=== PATIENT | female | born 1995 | race Caucasian/White ===

== ENCOUNTER 2018-07-13 22:37 | Emergency (ER) | payer BC ==
--- NOTE | 2018-07-13 23:15 | ER Document Report ---
ED General - General Chief Complaint: Vag Bleeding, +preg <12wks Stated Complaint: VAGINAL BLEEDING Time Seen by Provider: 07/13/18 23:06 Notes: Patient is a 23-year-old female presents with complaint of heavy vaginal bleeding and . Bleeding is been ongoing throughout the day and she has been passing large clots. She has not passed anything that appears to be a fetus. She is approximately 11 weeks . This is her second . She had some minor bleeding during her first but it eventually resolved and she want to have a healthy boy. No other completions with this . No fevers. No vomiting. No abnormal vaginal discharge. No dysuria. She says that she has just very mild cramping in her abdomen but otherwise no further pain. She thinks that her blood type is "something positive". She is followed by Rika SARMIENTO. TRAVEL OUTSIDE OF THE [place] IN LAST 30 DAYS: No - Related Data Allergies/Adverse Reactions: No Known Allergies Allergy (Unverified 02/09/16 02:20) Past Medical History - Social History Smoking Status: Never Smoker Frequency of alcohol use: None Drug Abuse: None Family History: Reviewed & Not Pertinent Review of Systems - Review of Systems Notes: My Normal Review Basic REVIEW OF SYSTEMS: CONSTITUTIONAL : Denies fever, chills, or sweats. Denies recent illness. RESPIRATORY: Denies cough, cold, or chest congestion. Denies shortness of breath, difficulty breathing, or wheezing. GASTROINTESTINAL: Denies abdominal pain. Denies nausea, vomiting, or diarrhea. GENITOURINARY: Denies difficulty urinating, painful urination, burning, frequency, or blood in urine. FEMALE GENITOURINARY: Vaginal bleeding in . MUSCULOSKELETAL: Denies neck or back pain or joint pain or swelling. NEUROLOGICAL: Denies altered mental status or loss of consciousness. ALL OTHER SYSTEMS REVIEWED AND NEGATIVE. Physical Exam - Vital signs Vitals: Temp Pulse Resp BP Pulse Ox 98.5 F 94 14 143/82 H 98 07/13/18 22:40 07/13/18 22:40 07/13/18 22:40 07/13/18 22:40 07/13/18 22:40 - Notes Notes: General Appearance: Well nourished, alert, cooperative, no acute distress, no obvious discomfort. Well-appearing. Vitals: reviewed, See vital signs table. Eyes: PERRL, EOMI, Conjuctiva clear Lungs: No wheezing, No rales, No rhonci, No accessory muscle use, good air exchange bilaterally. Heart: Normal rate, Regular rythm, No murmur, no rub Abdomen: Normal BS, soft, No rigidity, No abdominal tenderness, No guarding, no rebound, no abdominal masses, no organomegaly Extremities: good pulses in all extremities, no edema. Neuro: speech clear, oriented x 3, normal affect, responds appropriately to questions. Course - Re-evaluation Re-evalutation: 07/14/18 01:23 Reevaluation patient continues look well. She says her bleeding has slowed down significantly. She has no sniffing pain on exam. Her ultrasound shows normal IUP with good heart rate. Hemoglobin is not a concerning level. HCG level is at a level expected for gestational age. Informed patient she is to follow-up with her OB doctor on Monday for reevaluation. In the meantime will have her avoid sexual activity and heavy lifting and to rest. I encouraged her return to ER immediately if she has recurrent heavy vaginal bleeding, severe pain, or if she feels unwell. Patient agrees with plan will be discharged home. Dictation of this chart was performed using voice recognition software; therefore, there may be some unintended grammatical errors. - Vital Signs Vital signs: Temp Pulse Resp BP Pulse Ox 98.5 F 94 14 143/82 H 98 07/13/18 22:40 07/13/18 22:40 07/13/18 22:40 07/13/18 22:40 07/13/18 22:40 - Laboratory Result Diagrams: 07/13/18 23:15 Laboratory results interpreted by me: 07/13/18 07/13/18 23:15 23:15 WBC 10.6 H Beta HCG, Quant 935652.00 H Discharge - Discharge Clinical Impression: Vaginal bleeding during Condition: Good Disposition: HOME, SELF-CARE Additional Instructions: Please do not have sex or lift anything heavy until cleared by your OB. please follow up with your OB or return to the ER for reevaluation on Monday for reevaluation and recheck of your hormone level. Please return to the ER immediately if you have recurrent heavy bleeding, difficulty breathing, lightheadedness, or feel unwell.
[2018-07-13 23:27] LABS: HEMATOCRIT 38.3 % (36.0-47.0); HEMOGLOBIN 13.2 g/dL (12.0-15.5); MEAN CORPUSCULAR HEMOGLOBIN 29.2 pg (27.0-33.4); MEAN CORPUSCULAR HGB CONC 34.5 g/dL (32.0-36.0); MEAN CORPUSCULAR VOLUME 85 fl (80-97); PLATELET COUNT 246 10^3/uL (150-450); RED BLOOD COUNT 4.53 10^6/uL (3.72-5.28); RED CELL DISTRIBUTION WIDTH 13.4 % (11.5-14.0); WHITE BLOOD COUNT 10.6 10^3/uL (4.0-10.5)
--- NOTE | 2018-07-14 00:33 | RADIOLOGY REPORT (SQ) ---
EXAM DESCRIPTION: US LESS THAN 14 WEEKS COMPLETED DATE/TME: 07/13/2018 23:12 CLINICAL HISTORY: 23 years, Female, bleeding in COMPARISON: None. TECHNIQUE: Transverse and longitudinal transabdominal sonographic images in a first trimester patient LIMITATIONS: None. FINDINGS: There is a single, live intrauterine gestation with visualization of heart tones and motion throughout the exam. heart tones were obtained at 160 bpm. Current ultrasound age is 11 weeks 5 days. This is based on a mean crown-rump length of 4.96 cm. The maternal uterus measures 10.1 x 7.2 x 9.5 cm. The maternal right ovary measures 2.8 x 1.9 x 3.1 cm, the left ovary 3.7 x 2.1 x 3.2 cm. Doppler and spectral analysis with color flow was utilized. Arterial and venous flow to both ovaries. No adnexal cyst or mass. No free fluid. Cervical length is 3.2 cm. IMPRESSION: Single, live intrauterine gestation with current ultrasound age 11 weeks 5 days. Continued nonemergent follow-up recommended copyright 2010 [employer]- All Rights Reserved
[2018-07-14 03:05] VITALS: BP 130/64
== END 2018-07-14 03:00 | disposition home or self-care (01) ==
LOC: ER 22:37
DX: O20.9 Hemorrhage in early pregnancy, unspecified (principal); Z3A.11 11 weeks gestation of pregnancy
CPT/HCPCS: 36415; 76801; 84702; 85027; 86900; 86901; 93976; 99284

== ENCOUNTER 2019-01-09 19:49 | Inpatient (IN) | payer BC ==
[2019-01-09] MEDS ORDERED: OXYTOCIN/NORMAL SALINE 20 UNIT/1,000 ML RTUINJ ONE (20:43)
[2019-01-09] MEDS ORDERED: MISOPROSTOL 0.2 MG TABLET ONE (20:43)
[2019-01-09] MEDS ORDERED: LIDOCAINE 1% INJ-PF (10 MG/ML) 30 ML SDV ONE (20:43)
--- NOTE | 2019-01-09 20:51 | Admission Physical ---
Datetime Report Generated by CPN: 01/09/2019 20:51 CURRENT ADMISSION Chief Complaint: Uterine Contractions Indication for Induction: Not Applicable Admit Impression : Term, Intrauterine ; Active Labor Admit Plan: Admit to Unit; Initiate Labor Protocol ALLERGIES Medication Allergies: No Medication Allergies: No Known Allergies (01/09/2019) Latex: No Latex Allergies Food Allergies: onions OBSTETRICAL HISTORY EDC: 01/28/2019 00:00 : 2 Para: 1 Term: 1 : 0 SAB: 0 IAB: 0 Ectopic: 0 Livin Cesareans: 0 VBACs: 0 Multiple Births: 0 Gestational Diabetes: No Rh Sensitization: No Incompetent Cervix: No NICHOLAS: No Infertility: No ART Treatment: No Uterine Anomaly: No IUGR: No Hx Previous C/S: No Macrosomia: No Hx Loss/Stillborn: No PIH: No Hx : No Placenta Previa/Abruption: No Depression/PP Depression: Yes PTL/PROM: No Post Hemorrhage: No Obstetrical History Comments: G1: 2016 male 7lbs 9 oz SEE RECORDS Alcohol: No Marijuana : No Cocaine: No Other Illicit Drugs: No Cigarettes: Current Everyday Smoker. 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 Heart Disease: No Hosp/Surgery: No Autoimmune Disorder: No Anesthetic Complications: No Kidney Disease: No Abnormal Pap Smear: No Neuro/Epilepsy: No Psychiatric Disorders: No Other Medical Diseases: No Hepatitis/Liver Disease: No Significant Family History: No Varicosities/Phlebitis: No Trauma/Violence : No Thyroid Dysfunction: No Medical History Comments: depression INFECTIOUS HISTORY Gonorrhea: No Genital Herpes: No Chlamydia: No Tuberculosis: No Syphilis: No Hepatitis: No HIV/AIDS Exposure: No Rash or Viral Illness: No HPV: No PHYSICAL EXAM General: Normal HEENT: Normal Neurologic: Normal Thyroid: Normal Heart: Normal Lungs: Normal Breast: Deferred Back: Normal Abdomen: Normal Genitourinary Exam: Normal Extremities: Normal DTRs: Normal Pelvic Type: Adequate Vital Signs: Reviewed VAGINAL EXAM Dilatation: 5 Effacement: 80 Station: 0 MEMBRANES Pooling: Negative Membranes: Intact FETUS A EGA: 37.2 Monitoring: External US FHR- Baseline: 120 Variability: Moderate 6-25bpm Decelerations: None FHR Category: Category I Presentation: Vertex Admit Comment: No GBS in records so we will treat with PCN. PLANS FOR LABOR AND DELIVERY Labor and Delivery: None Pain Management: Natural Feeding Preference: Breast Benefit of Breast Feed Discussed: Yes Circumcision: N/A INFORMED CONSENT Signature: with User ID: [email or web address]
[2019-01-09 21:01] LABS: APPEARANCE,URINE CLOUDY; BILIRUBIN,URINE NEGATIVE (NEGATIVE); COLOR,URINE YELLOW; GLUCOSE, URINE NEGATIVE (NEGATIVE); KETONES,URINE 80 mg/dL (NEGATIVE); LEUKOCYTE ESTERASE,URINE LARGE (NEGATIVE); NITRITE,URINE NEGATIVE (NEGATIVE); PROTEIN,URINE NEGATIVE (NEGATIVE); URINE SPECIFIC GRAVITY 1.013; UROBILINOGEN,URINE NEGATIVE mg/dL (<2.0)
[2019-01-09 21:06] LABS: ABSOLUTE LYMPHOCYTES (AUTO) 1.7 10^3/uL (0.5-4.7); ABSOLUTE MONOCYTES (AUTO) 0.5 10^3/uL (0.1-1.4); ABSOLUTE NEUT (AUTO) 10.8 10^3/uL (1.7-8.2); BASOPHILS % (AUTO) 0.1 % (0-2); EOSINOPHILS % (AUTO) 0.2 % (0-6); HEMATOCRIT 34.9 % (36.0-47.0); HEMOGLOBIN 11.1 g/dL (12.0-15.5); LYMPHOCYTES % (AUTO) 13.1 % (13-45); MEAN CORPUSCULAR HEMOGLOBIN 25.1 pg (27.0-33.4); MEAN CORPUSCULAR HGB CONC 31.8 g/dL (32.0-36.0); MEAN CORPUSCULAR VOLUME 79 fl (80-97); PLATELET COUNT 205 10^3/uL (150-450); RED BLOOD COUNT 4.42 10^6/uL (3.72-5.28); RED CELL DISTRIBUTION WIDTH 19.9 % (11.5-14.0); SEGMENTED NEUTROPHILS % (AUTO) 82.6 % (42-78); TOTAL CELLS COUNTED % (AUTO) 100 %; WHITE BLOOD COUNT 13.1 10^3/uL (4.0-10.5)
[2019-01-09 21:12] LABS: URINE AMPHETAMINES SCREEN NEGATIVE; URINE BARBITURATES SCREEN NEGATIVE; URINE BENZODIAZEPINES SCREEN NEGATIVE; URINE COCAINE SCREEN NEGATIVE; URINE MARIJUANA (THC) SCREEN NEGATIVE; URINE METHADONE SCREEN NEGATIVE; URINE PHENCYCLIDINE SCREEN NEGATIVE
[2019-01-09] MEDS ORDERED: PENICILLIN G-K 5 MILLION UNIT VIAL ONE (21:16)
[2019-01-09] MEDS ORDERED: OXYTOCIN/NORMAL SALINE 20 UNIT/1,000 ML RTUINJ IV PRN (21:23)
[2019-01-09] MEDS ORDERED: RINGERS SOLUTION,LACTATED 1,000 ML IV PRN (21:23)
[2019-01-09] MEDS ORDERED: RINGERS SOLUTION,LACTATED 300 ML IV ONE (21:23)
[2019-01-10] MEDS ORDERED: PENICILLIN G-K 5 MILLION UNIT VIAL ONE ×2 (00:55→04:57)
[2019-01-10] MEDS ORDERED: PROMETHAZINE HCL 25 MG TABLET PO PRN (08:03)
[2019-01-10] MEDS ORDERED: MEASLES,MUMPS&RUBELLA VACC/PF 0.5 ML VIAL SUBCUT PRN (08:03)
[2019-01-10] MEDS ORDERED: NA PHOS,M-B/NA PHOS,DI-BA (ADULT) 133 ML ENEMA PR PRN (08:03)
[2019-01-10] MEDS ORDERED: PSEUDOEPHEDRINE HCL 30 MG TABLET PO PRN (08:03)
[2019-01-10] MEDS ORDERED: OXYTOCIN/NORMAL SALINE 20 UNIT/1,000 ML RTUINJ IV PRN (08:03)
[2019-01-10] MEDS ORDERED: BENZOCAINE/MENTHOL AEROSOL SPRAY 56 ML TOP PRN (08:03)
[2019-01-10] MEDS ORDERED: ACETAMINOPHEN 650 MG SUPP.RECT PR PRN (08:03)
[2019-01-10] MEDS ORDERED: DIPH/PERTUSS(ACELL)/TETANUS VAC/PF 0.5 ML SYR (>=10YO) IM PRN (08:03)
[2019-01-10] MEDS ORDERED: DIBUCAINE 1% OINTMENT 56 GM TP PRN (08:03)
[2019-01-10] MEDS ORDERED: DIPHENHYDRAMINE HCL 25 MG CAPSULE PO PRN (08:03)
[2019-01-10] MEDS ORDERED: GLYCERIN/WITCH HAZEL LEAF 1 EACH MED..WIPE TP PRN (08:03)
[2019-01-10] MEDS ORDERED: ZOLPIDEM TARTRATE 5 MG TABLET PO PRN (08:03)
[2019-01-10] MEDS ORDERED: PROMETHAZINE HCL INJ 25 MG/1 ML VIAL IV PRN (08:03)
[2019-01-10] MEDS ORDERED: MAGNESIUM HYDROXIDE SUSP 30 ML UDCUP PO PRN (08:03)
[2019-01-10] MEDS ORDERED: ACETAMINOPHEN WITH CODEINE #3 TABLET PO PRN ×2 (08:03)
[2019-01-10] MEDS ORDERED: PROMETHAZINE HCL 25 MG SUPP.RECT PR PRN (08:03)
[2019-01-10] MEDS: SENNOSIDES/DOCUSATE 8.6-50 MG 1 EACH TABLET PO SCH (13:15)
[2019-01-10] MEDS: PRENATAL VITAMIN W DHA CAPSULE PO SCH (13:15)
[2019-01-10] MEDS: DOCUSATE SODIUM 100 MG CAPSULE PO SCH ×2 (13:15→17:21)
[2019-01-10] MEDS: FERROUS SULFATE 325 MG TABLET PO SCH ×2 (13:15→17:21)
[2019-01-10] MEDS: FAMOTIDINE 20 MG TABLET PO SCH ×2 (13:15→22:54)
[2019-01-10] MEDS: IBUPROFEN 800 MG TABLET PO SCH ×2 (13:16→22:54)
[2019-01-11] MEDS: IBUPROFEN 800 MG TABLET PO SCH ×3 (05:10→21:22)
[2019-01-11 06:05] LABS: HEMATOCRIT 30.4 % (36.0-47.0); HEMOGLOBIN 9.7 g/dL (12.0-15.5); MEAN CORPUSCULAR HEMOGLOBIN 25.4 pg (27.0-33.4); MEAN CORPUSCULAR HGB CONC 31.8 g/dL (32.0-36.0); MEAN CORPUSCULAR VOLUME 80 fl (80-97); PLATELET COUNT 191 10^3/uL (150-450); RED BLOOD COUNT 3.81 10^6/uL (3.72-5.28); RED CELL DISTRIBUTION WIDTH 19.9 % (11.5-14.0); WHITE BLOOD COUNT 11.8 10^3/uL (4.0-10.5)
[2019-01-11] MEDS: FERROUS SULFATE 325 MG TABLET PO SCH ×2 (10:21→17:44)
[2019-01-11] MEDS: SENNOSIDES/DOCUSATE 8.6-50 MG 1 EACH TABLET PO SCH (10:22)
[2019-01-11] MEDS: FAMOTIDINE 20 MG TABLET PO SCH ×2 (10:22→21:22)
[2019-01-11] MEDS: DOCUSATE SODIUM 100 MG CAPSULE PO SCH ×2 (10:22→17:44)
[2019-01-11] MEDS: PRENATAL VITAMIN W DHA CAPSULE PO SCH (10:22)
--- NOTE | 2019-01-11 15:45 | PDOC PROGRESS REPORT ---
Subjective-OB Progress Note for:: 01/11/19 Subjective: reports bleeding slowing, pain controlled with current meds. denies needs Physical Exam (OB) Vital Signs: Temp Pulse Resp BP Pulse Ox 97.8 F 86 14 118/66 100 01/11/19 08:21 01/11/19 08:21 01/11/19 08:21 01/11/19 08:21 01/11/19 08:21 Intake & Output 01/10/19 01/11/19 01/12/19 06:59 06:59 06:59 Intake Total 1000 Balance 1000 Weight 87 kg - Abdomen Description: Soft Hernia Present: No Fundal Description: Firm, Midline Fundal Height: u/u - u/2 - Abdominal Distension: No distension Tenderness: Nontender - Extremities Lower extremities: Oswald's sign - neg Calf: Normal, Nontender Objective-Diagnostic Laboratory: 01/11/19 05:51 01/11/19 05:51 WBC 11.8 H RBC 3.81 Hgb 9.7 L Hct 30.4 L MCV 80 MCH 25.4 L MCHC 31.8 L RDW 19.9 H Plt Count 191 Assessment and Plan(PN) - Assessment and Plan (1) Normal vaginal delivery Is this a current diagnosis for this admission?: Yes (2) Obstetrical laceration, first degree Is this a current diagnosis for this admission?: Yes - Time Spent with Patient Time with patient: Less than 15 minutes - Disposition Anticipated Discharge: Home Within: within 24 hours
[2019-01-12] MEDS: IBUPROFEN 800 MG TABLET PO SCH (06:11)
[2019-01-12 08:46] VITALS: BP 123/77
--- NOTE | 2019-01-12 09:17 | PDOC DISCHARGE SUMMARY ---
Final Diagnosis Discharge Date: 01/12/19 - Final Diagnosis (1) Normal vaginal delivery Is this a current diagnosis for this admission?: Yes (2) Obstetrical laceration, first degree Is this a current diagnosis for this admission?: Yes Discharge Data - Discharge Medication Prescriptions: Ibuprofen [Motrin 800 mg Tablet] 800 mg PO Q8HP PRN #60 tablet PRN Reason: Home Medications: No122/Iron/Folic Acid [ Multi Tablet] 1 tab PO DAILY 01/09/19 Ibuprofen [Motrin 800 mg Tablet] 800 mg PO Q8HP PRN #60 tablet 01/12/19 Procedures: NST Intrapartum Procedure(s): Spontaneous Vaginal Delivery Complication(s): Laceration-Perineal Laceration-Degree: 1st - Diagnosis Test Laboratory: Temp Pulse Resp BP Pulse Ox 98.2 F 80 16 123/77 98 01/12/19 07:36 01/12/19 07:36 01/12/19 07:36 01/12/19 07:36 01/12/19 07:36 01/09/19 01/09/19 01/11/19 19:59 20:57 05:51 RBC 4.42 3.81 Hgb 11.1 L 9.7 L Hct 34.9 L 30.4 L Urine Opiates Screen NEGATIVE - Discharge information/Instructions Discharge Activity: Balance Activity w/Rest, Pelvic Rest Discharge Diet: Regular Disposition: HOME, SELF-CARE Follow up with: [facility] in: 4, Weeks
[2019-01-12] MEDS: PRENATAL VITAMIN W DHA CAPSULE PO SCH (11:50)
[2019-01-12] MEDS: FAMOTIDINE 20 MG TABLET PO SCH (11:51)
[2019-01-12] MEDS: DOCUSATE SODIUM 100 MG CAPSULE PO SCH (11:51)
[2019-01-12] MEDS: FERROUS SULFATE 325 MG TABLET PO SCH ×2 (11:51→11:53)
[2019-01-12] MEDS: SENNOSIDES/DOCUSATE 8.6-50 MG 1 EACH TABLET PO SCH (11:52)
--- NOTE | 2019-01-16 08:38 | Delivery Summary ---
Del Sum A-C Datetime Report Generated by CPN: 01/16/2019 08:38 DELIVERY PERSONNEL DELIVERY PERSONNEL: [id number] Delivery Doctor:: Dory Giang MD Labor and Delivery Nurse:: Margarita Mily, RNC Nursery Nurse:: Gabi Griffin, RN Acid Splicer/CLIENT DELIVERY SPECIALIST: Marline Adan, ST MATERNAL INFORMATION Delivery Anesthesia: None Medications During Delivery: Local for repair Medications After Delivery: Pitocin Drip 20 Units/1000ml NSS LABOR SUMMARY EDC: 01/28/2019 00:00 No. Babies in Womb: 1 Labor Anesthesia: None LABOR INFORMATION Onset of Labor: 01/09/2019 15:00 Complete Dilatation: 01/10/2019 07:30 Oxytocin: N/A Group B Beta Strep: positive Antibiotics # of Doses: 1 Antibiotics Time of Last Dose: 0500 Steroids Given: None Reason Steroids Not Administered: Not Applicable MEMBRANES Membranes Rupture Method: Artificial Rupture of Membranes: 01/10/2019 06:40 Length of Rupture (hr): 1.05 Amniotic Fluid Color: Clear Amniotic Fluid Amount: Small Amniotic Fluid Odor: None STAGES OF LABOR Stage 1 hr: 16 Stage 1 min: 30 Stage 2 hr: 0 Stage 2 min: 13 Stage 3 hr: 0 Stage 3 min: 6 Total Time in Labor hr: 16 Total Time in Labor min: 49 VAGINAL DELIVERY Episiotomy: None Laceration #1: Perineal Laceration Extension #1: First Degree Laceration #2: None Laceration Extension #2: N/A Laceration Repair: Yes Laceration Repair Note: small perineal laceration repaired with one 3-0 chromic suture Sponge Count Correct: N/A; Vaginal Sweep Performed Sharps Count Correct: Yes BABY A INFORMATION Delivery Date/Time: 01/10/2019 07:43 Method of Delivery: Vaginal Born in Route : No Forceps: N/A Vacuum Extraction: N/A Shoulder Dystocia : No PRESENTATION/POSITION BABY A Presentation: Cephalic Cephalic Presentation: Vertex Vertex Position: Right Occipital Anterior PLACENTA INFORMATION BABY A Placenta Delivery Time : 01/10/2019 07:49 Placenta Method of Delivery: Spontaneous Placenta Status: Delivered SCORES BABY A Heart Rate 1 min: >100 bpm Resp Effort 1 min: Good Cry Reflex Irritability 1 min: Cough or Sneeze or Pulls Away Muscle Tone 1 min: Active Motion Color 1 min: Body [place], Extremities Blue Resuscitation Effort 1 min: N/A SCORE 1 MIN: 9 Heart Rate 5 min: >100 bpm Resp Effort 5 min: Good Cry Reflex Irritability 5 min: Cough or Sneeze or Pulls Away Muscle Tone 5 min: Active Motion Color 5 min: Body [place], Extremities Blue SCORE 5 MIN: 9 INFORMATION BABY A Gestational Age at Delivery: 37.3 Gestational Status: Early Term- 37- 38.6 Weeks Condition : Stable Infant Sex: Female IDENTIFICATION BABY A Verification Date/Time: 01/10/2019 08:00 ID Band Number: [id number] Mother's Name Verified: Yes RN Verifying Infant: Charly Additional Verifying Personnel: Lesa Arellano [employer] WEIGHT/LENGTH BABY A Infant Birthweight (gm): 3309 Weight (lb): 7 Infant Weight (oz): 5 Infant Length (in): 19.50 Infant Length (cm): 49.53 CORD INFORMATION BABY A No. Cord Vessels: 3 Nuchal Cord : N/A Infant Suction: None; Mouth ASSESSMENT BABY A Infant Complications: None Physical Findings at Delivery: Within Normal Limits Skin to Skin: Yes Transferred To: Remains with Mother SIGNATURES Signature: with User ID: [email or web address]
== END 2019-01-12 14:40 | disposition home or self-care (01) | DRG 807 ==
LOC: LC 19:49 → LR 20:43 → 2N 01-10 11:09
PROVIDERS: ADMIT Obstetrics & Gynecology; ATTEND Obstetrics & Gynecology
PROC: 10E0XZZ Delivery of Products of Conception, External Approach (ICD-10-PCS; principal; 2019-01-10)
PROC: 0HQ9XZZ Repair Perineum Skin, External Approach (ICD-10-PCS; 2019-01-10)
DX: O70.0 First degree perineal laceration during delivery (principal); Z37.0 Single live birth; F17.290 Nicotine dependence, other tobacco product, uncomplicated; O99.334 Smoking (tobacco) complicating childbirth; O99.824 Streptococcus B carrier state complicating childbirth; Z3A.37 37 weeks gestation of pregnancy
CPT/HCPCS: 36415; 80307; 81001; 85025; 85027; 86592; 86850; 86900; 86901; J2540; J2590; J3490